=== PATIENT | female | born 1950 | race Caucasian/White ===

== ENCOUNTER → 2023-11-17 14:37 | Outpatient (REF) | payer MEDICARE, OTHER, SELFPAY ==
[2023-11-17 16:34] LABS: Free T4 1.02 ng/dl (0.78-2.19)
[2023-11-17 16:49] LABS: TSH 0.62 uIU/ml (0.47-4.68)
== END ==
LOC: REG 14:37
PROVIDERS: ATTENDING PHYSICIAN Internal Medicine Endocrinology, Diabetes & Metabolism; FAMILY PHYSICIAN Internal Medicine
DX: E06.3 Autoimmune thyroiditis (principal)
CPT/HCPCS: 36415; 84439; 84443

== ENCOUNTER → 2023-11-23 12:18 | Outpatient (REF) | payer MEDICARE, OTHER, SELFPAY ==
[2023-11-23 12:34] VITALS: BP 123/69; BP_SYST 62
== END ==
LOC: RADI 12:18
PROVIDERS: ATTENDING PHYSICIAN Internal Medicine Endocrinology, Diabetes & Metabolism; FAMILY PHYSICIAN Internal Medicine
DX: E04.1 Nontoxic single thyroid nodule (principal)
CPT/HCPCS: 88173; 10005

== ENCOUNTER → 2023-12-22 11:14 | Outpatient (REF) | payer MEDICARE, OTHER, SELFPAY | LOC: RAD 11:14 | PROVIDERS: ATTENDING PHYSICIAN Internal Medicine | DX: M25.561 Pain in right knee (principal) | CPT/HCPCS: 73564 ==

== ENCOUNTER 2024-01-24 06:24 | Day surgery (SDC) | payer MEDICARE, OTHER, SELFPAY ==
[2024-01-12 08:56] VITALS: BMI 25.3
[2024-01-24] VITALS (9 sets, daily range): BP systolic 126–144; BP diastolic 63–85; BMI 25.3
[2024-01-24] MEDS: TYLENOL 1000 MG PO (09:37)
[2024-01-24] MEDS: HEPARIN 5000 UNITS SC (09:38)
[2024-01-24] MEDS: NORMOSOL-R 1000 IV (09:40)
[2024-01-24] MEDS: NEURONTIN 100 MG PO (09:53)
--- NOTE | 2024-01-24 12:55 | OR.RPT ---
Operative Report
Operative Report
DATE OF OPERATION: January 24, 2024
PREOPERATIVE DIAGNOSIS: Left Thyroid Nodule - E041
POSTOPERATIVE DIAGNOSIS: Same
SURGEON: Fan Canela M.D.
OPERATION: Left Total Thyroidectomy and Limited Neck Dissection - 51645
ANESTHESIA: GET
ESTIMATED BLOOD LOSS: 3 cc
DRAINS: None
SPECIMEN: left total thyroid lobe and isthmus and left level paratracheal tissue
FINDINGS: none
COMPLICATIONS:�None
PROCEDURE:
The patient was taken to the operating room and placed in the usual supine position. After adequate general endotracheal anesthesia was established, the patient�s neck was extended, prepped, and draped in the typical sterile fashion. A 5 cm
transcervical incision was made two fingerbreadths above the sternal notch. The skin incision was made with the #15 blade, which was taken through the skin into the subcutaneous tissue. The underlying platysma muscle was divided, and subplatysmal
flaps were created superiorly to the thyroid cartilage and inferiorly to the sternal notch. Strap muscles were identified and at the midline.
Attention was turned to the patient�s left thyroid lobe. The left thyroid lobe was mobilized medially. During this process, the left middle thyroid vein and inferior thyroid artery were dissected and ligated with Ligasure. Next, the left superior
pole was taken down by dissecting and transecting the superior pole vessels with a Ligasure. The left thyroid lobe was mobilized medially. During this process, the left recurrent laryngeal nerve was identified and preserved throughout its entire
course. The left inferior parathyroid gland was identified and preserved. The left thyroid lobe with isthmus was resected off the trachea and sent to the pathology department.
At this time, the left neck dissection was performed. The tissue between the left carotid artery to the trachea into the anterior mediastinum was carefully dissected. The previously identified recurrent laryngeal nerve and parathyroid gland were
preserved. The tissue was removed and sent to the pathology department.
After obtaining adequate hemostasis, the strap muscle was approximated with #3-0 Vicryl in a running fashion, and platysma muscles were reapproximated with #3-0 Vicryl in an interrupted fashion, and the skin was approximated with #4-0 Monocryl in a
running subcuticular fashion. Steri-strips and sterile dressings were placed. The patient tolerated the procedure well. The final instrument, needle, and sponge counts were correct.
== END 2024-01-24 13:58 | disposition home or self-care (01) ==
LOC: SDS 06:24
PROVIDERS: ATTENDING PHYSICIAN Surgery
DX: C73 Malignant neoplasm of thyroid gland (principal); C77.1 Secondary and unspecified malignant neoplasm of intrathoracic lymph nodes
CPT/HCPCS: 60252; 88307

== ENCOUNTER 2024-02-07 09:27 | Outpatient (RCR) | payer MEDICARE, OTHER, SELFPAY | END 2024-02-07 23:59 | disposition home or self-care (01) | LOC: RPT 09:27 | PROVIDERS: ATTENDING PHYSICIAN Internal Medicine | DX: M25.561 Pain in right knee (principal); R26.89 Other abnormalities of gait and mobility; Z73.6 Limitation of activities due to disability | CPT/HCPCS: 97010; 97110; 97112; 97162 ==

== ENCOUNTER 2024-02-10 09:06 | Outpatient (RCR) | payer MEDICARE, OTHER, SELFPAY | END 2024-02-10 10:37 | disposition home or self-care (01) | LOC: RPT 09:06 | PROVIDERS: ATTENDING PHYSICIAN Internal Medicine | DX: M25.561 Pain in right knee (principal); R26.89 Other abnormalities of gait and mobility; Z73.6 Limitation of activities due to disability | CPT/HCPCS: 97110 ==

== ENCOUNTER → 2024-03-07 08:44 | Outpatient (REF) | payer MEDICARE, OTHER, SELFPAY ==
[2024-03-07 11:36] LABS: TSH Reflex To Free T4 1.58 uIU/ml (0.47-4.68)
[2024-03-08 05:52] LABS: Thyroglobulin 2.7 ng/mL (1.3-31.8); Thyroglobulin Antibodies <0.9 IU/mL (0.0-4.0)
== END ==
LOC: REG 08:44
PROVIDERS: ATTENDING PHYSICIAN Internal Medicine Endocrinology, Diabetes & Metabolism; FAMILY PHYSICIAN Internal Medicine
DX: E04.1 Nontoxic single thyroid nodule (principal)
CPT/HCPCS: 36415; 84432; 84443; 86800

== ENCOUNTER → 2024-05-18 13:30 | Outpatient (REF) | payer MEDICARE, OTHER, SELFPAY ==
[2024-05-18 14:05] LABS: % Basophils 0.2 % (0-2); % Eosinophils 0.2 % (0-6); % Immature Granulocytes 0.2 % (0-0.5); % Lymphocytes 13.5 % (20.5-51.1); % Monocytes 7.3 % (1.7-9.3); % Neutrophils 78.6 % (42.2-75.2); Absolute Lymphocytes 1.3 10^3/uL (1.2-3.4); Absolute Monocytes 0.7 10^3/uL (0.1-0.6); Absolute Neutrophils 7.3 10^3/uL (1.4-6.5); Hematocrit 41.6 % (37.0-47.0); Hemoglobin 14.3 g/dL (12.0-16.0); Mean Corp Hgb Conc. 34.4 g/dL (33.0-37.0); Mean Corpuscular Hgb 33.6 pg (27.0-31.0); Mean Corpuscular Volume 97.7 fL (81.0-99.0); Mean Platelet Volume 9.9 fL (7.4-10.4); Nucleated Red Blood Cells % 0 %; Platelet Count 234 10^3/uL (130-400); Red Blood Cell Count 4.26 10^6/uL (4.20-5.40); White Blood Cell Count 9.3 10^3/uL (4.8-10.8)
[2024-05-18 14:37] LABS: Blood Urea Nitrogen 15 mg/dl (7-17); Calcium 9.6 mg/dl (8.4-10.2); Carbon Dioxide 30 mmol/L (22-30); Chloride 100 mmol/L (98-107); Glucose 59 mg/dl (70-99); Sodium 136 mmol/L (135-145); eGFR > 60.00
== END ==
LOC: REG 13:30
PROVIDERS: ATTENDING PHYSICIAN Orthopaedic Surgery Hand Surgery; FAMILY PHYSICIAN Internal Medicine
DX: Z01.818 Encounter for other preprocedural examination (principal)
CPT/HCPCS: 36415; 80048; 85025; 93005

== ENCOUNTER → 2024-06-07 15:02 | Outpatient (REF) | payer MEDICARE, OTHER, SELFPAY ==
[2024-06-07 17:25] LABS: ALT (SGPT) 19 U/L (0-35); AST (SGOT) 32 U/L (14-36); Albumin 4.1 g/dl (3.5-5.0); Alkaline Phosphatase 99 U/L (38-126); Blood Urea Nitrogen 18 mg/dl (7-17); Calcium 9.2 mg/dl (8.4-10.2); Carbon Dioxide 28 mmol/L (22-30); Chloride 100 mmol/L (98-107); Glucose 179 mg/dl (70-99); Sodium 139 mmol/L (135-145); Total Bilirubin 0.6 mg/dl (0.2-1.3); Total Protein 6.3 g/dl (6.3-8.2); eGFR > 60.00
[2024-06-07 17:39] LABS: Free T4 1.03 ng/dl (0.78-2.19)
[2024-06-07 17:52] LABS: TSH 2.47 uIU/ml (0.47-4.68)
[2024-06-07 17:56] LABS: % Basophils 0.4 % (0-2); % Eosinophils 0.2 % (0-6); % Immature Granulocytes 0.5 % (0-0.5); % Lymphocytes 15.9 % (20.5-51.1); % Monocytes 4.6 % (1.7-9.3); % Neutrophils 78.4 % (42.2-75.2); Absolute Lymphocytes 1.3 10^3/uL (1.2-3.4); Absolute Monocytes 0.4 10^3/uL (0.1-0.6); Absolute Neutrophils 6.5 10^3/uL (1.4-6.5); Hematocrit 38.7 % (37.0-47.0); Hemoglobin 13.3 g/dL (12.0-16.0); Mean Corp Hgb Conc. 34.4 g/dL (33.0-37.0); Mean Corpuscular Hgb 32.8 pg (27.0-31.0); Mean Corpuscular Volume 95.3 fL (81.0-99.0); Mean Platelet Volume 10.7 fL (7.4-10.4); Nucleated Red Blood Cells % 0 %; Platelet Count 284 10^3/uL (130-400); Red Blood Cell Count 4.06 10^6/uL (4.20-5.40); Red Cell Dist. Width 12.5 % (11.5-14.5); White Blood Cell Count 8.3 10^3/uL (4.8-10.8)
== END ==
LOC: REG 15:02
PROVIDERS: ATTENDING PHYSICIAN Internal Medicine Endocrinology, Diabetes & Metabolism; FAMILY PHYSICIAN Internal Medicine
DX: C73 Malignant neoplasm of thyroid gland (principal); E04.1 Nontoxic single thyroid nodule
CPT/HCPCS: 36415; 80053; 84439; 84443; 85025

== ENCOUNTER 2024-07-09 06:58 | Outpatient (RCR) | payer MEDICARE, OTHER, SELFPAY | END 2024-07-09 23:59 | disposition home or self-care (01) | LOC: ROT 06:58 | PROVIDERS: ATTENDING PHYSICIAN Internal Medicine | DX: S52.591D Other fractures of lower end of right radius, subsequent encounter for closed fracture with routine healing (principal); Z73.6 Limitation of activities due to disability | CPT/HCPCS: 97010; 97022; 97110; 97140; 97166; 97535 ==

== ENCOUNTER 2024-08-06 06:47 | Outpatient (RCR) | payer MEDICARE, OTHER, SELFPAY | END 2024-08-06 23:59 | disposition home or self-care (01) | LOC: ROT 06:47 | PROVIDERS: ATTENDING PHYSICIAN Internal Medicine | DX: S52.591D Other fractures of lower end of right radius, subsequent encounter for closed fracture with routine healing (principal); Z73.6 Limitation of activities due to disability | CPT/HCPCS: 97010; 97022; 97110; 97140 ==

== ENCOUNTER 2024-08-13 07:19 | Outpatient (RCR) | payer MEDICARE, OTHER, SELFPAY | END 2024-08-16 12:06 | disposition home or self-care (01) | LOC: ROT 07:19 | PROVIDERS: ATTENDING PHYSICIAN Internal Medicine | DX: Z47.89 Encounter for other orthopedic aftercare (principal); S52.591D Other fractures of lower end of right radius, subsequent encounter for closed fracture with routine healing; Z73.6 Limitation of activities due to disability; M62.81 Muscle weakness (generalized) | CPT/HCPCS: 97022; 97110; 97140 ==

== ENCOUNTER → 2024-09-10 07:52 | Outpatient (REF) | payer MEDICARE, OTHER, SELFPAY ==
[2024-09-10 09:40] LABS: TSH Reflex To Free T4 4.72 uIU/ml (0.47-4.68)
[2024-09-10 10:09] LABS: Free T4 0.83 ng/dl (0.78-2.19)
== END ==
LOC: RAD 07:52
PROVIDERS: ATTENDING PHYSICIAN Internal Medicine Endocrinology, Diabetes & Metabolism; FAMILY PHYSICIAN Internal Medicine
DX: E04.1 Nontoxic single thyroid nodule (principal); C73 Malignant neoplasm of thyroid gland
CPT/HCPCS: 36415; 76536; 84439; 84443

== ENCOUNTER → 2024-09-18 11:27 | Outpatient (REF) | payer MEDICARE, OTHER, SELFPAY | LOC: WDC 11:27 | PROVIDERS: ATTENDING PHYSICIAN Internal Medicine | DX: Z12.31 Encounter for screening mammogram for malignant neoplasm of breast (principal) | CPT/HCPCS: 77063; 77067 ==

== ENCOUNTER 2024-09-21 20:20 | Emergency (ER) | payer MEDICARE, OTHER, SELFPAY ==
[2024-09-21 20:23] VITALS: BP 131/82
--- NOTE | 2024-09-21 20:27 | ED.GENMED ---
ED Provider Triage
<Ester Richards PA-C - Last Filed: 09/21/24 20:29>
-
Patient seen by provider in Triage?: Seen in Triage
Attestation: A medical screening examination has been initiated by a qualified medical provider. Based on the assessment performed at this time, it has been determined that an emergent medical condition may exist and the patient has been informed
that further medical evaluation and possible additional diagnostic testing may be needed.
HPI: 74yoF here with a cough since yesterday. Had an episode of SOB while eating dinner. [place] like something got stuck. Now asymptomatic.
GENERAL: Alert , in no apparent distress
EYE: No visual abnormalities.
NECK: Trachea midline
ENT: No visible abnormalities.
LUNGS: No acute respiratory distress
NEUROLOGICAL: Alert and oriented
SKIN: Skin intact. No visible changes.
MUSCULOSKELETAL: Moving extremities normally
PSYCH: Normal and appropriate interaction.
This is a medical evaluation conducted in person to initiate diagnostic evaluation and provide initial therapeutics. Please see further documentation by the treating clinician.
History of Present Illness
<Ester Richards PA-C - Last Filed: 09/21/24 20:29>
General
Chief Complaint: Breathing Problem
Time Seen by Provider: 09/21/24 20:44
<Jerzy Ortiz Jr., PA-C - Last Filed: 09/21/24 21:45>
General
Source: patient
Exam Limitations: none and dementia
Nursing documentation reviewed up to this point in time: agreed with
History of Present Illness
History of Present Illness:
74-year-old female past medical history of dementia hyperlipidemia presenting to the emergency department today when she had an episode where she was having a coughing fit had some trouble breathing during it that lasted for a few minutes fully
resolved at this point feels normal. Has had a mild cough otherwise over the past 24 hours. Denies any fevers chest pain shortness of breath no additional symptoms at this point.
Past History
<Ester Richards PA-C - Last Filed: 09/21/24 20:29>
Past History
ED Past Medical History: Hypothyroidism
Social History
Tobacco: Non-smoker
Personal:
Review of Systems
<Jerzy Ortiz Jr., PA-C - Last Filed: 09/21/24 21:45>
Review of Systems
Allergies reviewed?: Yes
All Other Systems: ROS reviewed and negative except as documented in HPI and ROS
Phy Exam
<Jerzy Ortiz Jr., PA-C - Last Filed: 09/21/24 21:45>
Physical Exam
Physical Exam:
GENERAL: Alert , in no apparent distress
EYE: pupils equal and reactive
NECK: Supple, no significant adenopathy.
ENT: o/p clr, mmm.
CARDIAC: Regular rate and rhythm .
LUNGS: Clear breath sounds bilaterally, no acute respiratory distress, no wheezes/rales/rhonchi
ABDOMEN: Soft, without focal tenderness, no r/g, no cvat
NEUROLOGICAL: Alert and oriented, no focal neuro deficits
SKIN: Warm and dry, skin intact.
MUSCULOSKELETAL: No edema, well perfused.
PSYCH: Normal and appropriate interaction.
Scores
<Jerzy Ortiz Jr., PA-C - Last Filed: 09/21/24 21:45>
Heart Failure Risk
Heart Failure Risk Score: Not Applicable
Course
<Ester Richards PA-C - Last Filed: 09/21/24 20:29>
Orders/Labs/Results
Orders:
Orders
09/21/24 20:28
CR Chest - 2 Views Urgent
Comment:
Reason For Exam: SOB
Vital Signs
Initial and Last Documented VS:
Initial Vital Signs
Temp Pulse Resp BP Pulse Ox
98.1 F 68 18 131/82 100
09/21/24 20:23 09/21/24 20:23 09/21/24 20:23 09/21/24 20:23 09/21/24 20:23
Last Documented Vital Signs
Temp Pulse Resp BP Pulse Ox
98.1 F 68 18 131/82 100
09/21/24 20:23 09/21/24 20:23 09/21/24 20:23 09/21/24 20:23 09/21/24 20:23
<Jerzy Ortiz Jr., PA-C - Last Filed: 09/21/24 21:45>
Orders/Labs/Results
Orders:
Orders
09/21/24 20:28
CR Chest - 2 Views Urgent
Comment:
Reason For Exam: SOB
Vital Signs
Initial and Last Documented VS:
Initial Vital Signs
Temp Pulse Resp BP Pulse Ox
98.1 F 68 18 131/82 100
09/21/24 20:23 09/21/24 20:23 09/21/24 20:23 09/21/24 20:23 09/21/24 20:23
Last Documented Vital Signs
Temp Pulse Resp BP Pulse Ox
98.1 F 68 18 131/82 100
09/21/24 20:23 09/21/24 20:23 09/21/24 20:23 09/21/24 20:23 09/21/24 20:23
<Jerzy Ortiz Jr., PA-C - Last Filed: 09/21/24 21:45>
MDM/Problems Addressed
MDM/Problems Addressed:
74-year-old female presenting to the emergency department with a coughing fit prior to arrival now symptoms fully resolved. No significant ongoing cough chest pain shortness of breath x-ray here without acute abnormalities lungs are clear stable
for outpatient management return precautions given.
<Jerzy Ortiz Jr., PA-C - Last Filed: 09/21/24 21:45>
*Critical Care Note
Total Time (30-74mins, 75-104mins- exclusive of procedures): Not Applicable
ED Attending Note
<Ester Richards PA-C - Last Filed: 09/21/24 20:29>
-
Portions of this chart may have been created with voice recognition software.� Occasional wrong word or��sound alike� substitutions may have occurred due to the inherent limitations of voice recognition software.
Discharge Plan
Departure
Patient Disposition: Home (Routine Discharge)
Date of Disposition: 09/21/24
Time of Disposition: 21:44
Patient with high blood pressure during this ER visit?: No
Condition: Good
Covid-19: Not Applicable
Discharge Problem:
Acute bronchitis
Instructions: Acute Bronchitis, Adult (DC)
Prescriptions:
No Action
donepezil 10 mg Tablet
10 mg PO QPM
alendronate 70 mg Tablet
70 mg PO SA
levothyroxine 50 mcg Tablet
50 mcg PO DAILY
simvastatin 20 mg Tablet
20 mg PO QPM
Anacin 400-32 mg Tablet
1 tab PO DAILYPRN PRN (Reason: headaches)
Hair,Skin and Nails Tablet
1 tab PO DAILY
Centrum Silver Women 8 mg iron-400 mcg-50 mcg Tablet
1 tab PO DAILY
Neuriva Original 100-100 mg Capsule
1 cap PO DAILY
Metamucil
1 gum PO BID
Broad Top Krill Oil 500 mg capsule
1 cap PO DAILY
Osteo Bi-Flex 300 mg tablet
1 tab PO BID
Viviscal
1 tab PO DAILY
Referrals:
Jimbo Morrison DO [Family Provider] -
Activity Restrictions/Additional Instructions:
You came to the emergency department today after significant coughing. Return for any worsening, new or concerning symptoms.
Interventions
Interventions:
*Risk Screen - Suicide Last Done: 09/21/24 20:25
ED- Fall Risk Assessment Last Done: 09/21/24 20:56
*ED COVID-19 Vaccine History Last Done: 09/21/24 20:25
ED- Cardiac Assessment Last Done: 09/21/24 20:56
ED- Pulmonary Assessment Last Done: 09/21/24 20:56
Discharge Date and Time
Print Language: ROMANIAN
[2024-09-21 21:54] VITALS: BP 116/74
== END 2024-09-21 21:55 | disposition home or self-care (01) ==
LOC: EMR 20:20
PROVIDERS: EMERGENCY PHYSICIAN Student in an Organized Health Care Education/Training Program; FAMILY PHYSICIAN Internal Medicine
DX: J20.9 Acute bronchitis, unspecified (principal); F03.90 Unspecified dementia, unspecified severity, without behavioral disturbance, psychotic disturbance, mood disturbance, and anxiety; E78.5 Hyperlipidemia, unspecified
CPT/HCPCS: 99283; 71046

== ENCOUNTER → 2024-12-20 12:16 | Outpatient (REF) | payer MEDICARE, OTHER, SELFPAY ==
[2024-12-20 14:17] LABS: Free T4 1.17 ng/dl (0.78-2.19)
[2024-12-20 14:31] LABS: TSH 1.18 uIU/ml (0.47-4.68)
== END ==
LOC: REG 12:16
PROVIDERS: ATTENDING PHYSICIAN Internal Medicine Endocrinology, Diabetes & Metabolism; FAMILY PHYSICIAN Internal Medicine
DX: E04.1 Nontoxic single thyroid nodule (principal)
CPT/HCPCS: 36415; 84439; 84443

== ENCOUNTER → 2025-08-27 07:14 | Outpatient (REF) | payer MEDICARE, OTHER, SELFPAY | LOC: RAD 07:14 | PROVIDERS: ATTENDING PHYSICIAN Internal Medicine Endocrinology, Diabetes & Metabolism; FAMILY PHYSICIAN Internal Medicine | DX: E04.1 Nontoxic single thyroid nodule (principal) | CPT/HCPCS: 36415; 76536; 84443 ==

== ENCOUNTER → 2025-09-18 07:36 | Outpatient (REF) | payer MEDICARE, OTHER, SELFPAY | LOC: WDC 07:36 | PROVIDERS: ATTENDING PHYSICIAN Internal Medicine | DX: Z12.31 Encounter for screening mammogram for malignant neoplasm of breast (principal) | CPT/HCPCS: 77063; 77067 ==